=== PATIENT | male | born 1945 | race Caucasian/White ===

== ENCOUNTER 2022-04-10 09:09 | Emergency (ER) | payer MEDICARE, SELFPAY ==
--- NOTE | ~2022-04-10 | XR_ITS ---
EXAMINATION: XR CHEST CLINICAL INFORMATION: Cough COMPARISON: Previous chest x-ray May 2012 TECHNIQUE: 2 views of the chest were obtained. FINDINGS: The cardiac and mediastinal contours are stable. The lungs are clear. There is no pleural effusion or pneumothorax. There are degenerative changes of the spine. XR/XR chest 2V IMPRESSION: No evidence for acute disease in the chest.
[2022-04-10 09:21] VITALS: BP 152/92; PULSE 112; RESP 24; TEMP 37.1; O2SAT 94; BMI 36.6
[2022-04-10 09:34] VITALS: BP 126/78; PULSE 100; RESP 17; TEMP 37.1; O2SAT 94
--- NOTE | 2022-04-10 09:46 | ED_ITS ---
HPI - URI/Sore Throat General Chief Complaint: Upper Respiratory Symptoms Stated Complaint: Cough/Congestion Time Seen by Provider: 04/10/22 09:39 Source: patient Mode of arrival: ambulatory Limitations: no limitations History of Present Illness HPI Narrative: 77 yo male with history of HTN and gout who presents to the ER c/o 6 days of feeling unwell and feeling like he has the flu. He states he has had a cough productive of white phlegm, chest congestion, body aches and headache. Symptoms started 6 days ago and have been waxing and waning. Last night he started having ?fuzzy vision in both of his eyes with increased eye drainage bilaterally. This morning he woke up with both of his eyes crusted shut with drainage. He noticed both of his eyes are bloodshot and red. He denies foreign body sensation, trauma. He is fully vaccinated for COVID and flu. He has no known sick contacts. He denies any shortness of breath, chest pain, abdominal pain. MD elicited complaint: cough and nasal congestion Onset (ago): day(s) (6) Consistency: constant Severity: moderate Description of mucous: clear Able to tolerate fluids by mouth: Yes Exacerbating factors: nothing Relieving factors: nothing Associated symptoms: myalgias, headache, nasal congestion and cough Treatments prior to arrival: none Related Data Previous Rx's Medication Instructions Recorded sulfacetamide sodium 10 % eye drops 1 drp ophthalmic (eye) Q4H #5 mL 04/10/22 Allergies Allergy/AdvReac Type Severity Reaction Status Date / Time Shellfish Allergy Severe ITCHING Uncoded 02/15/20 16:27 HANDS SHELLFISH Allergy Unknown Uncoded 09/12/15 00:00 shellfish Allergy Unknown swelling Uncoded 10/26/13 00:00 Review of Systems Review of Systems: Constitutional: No Fever, No Chills ENT/Mouth: No sore throat, No Rhinorrhea, No Swallowing Difficulty Eyes: No Eye Pain, No Swelling, + Redness, +discharge Cardiovascular: No Chest Pain, No SOB, No Orthopnea, No Edema Respiratory: + Cough, + Sputum, No Wheezing, No dyspnea Gastrointestinal: No Nausea, No Vomiting, No Diarrhea, No abdominal Pain, No Hematochezia, No Melena Genitourinary: No Dysuria, No Urinary Frequency, No Hematuria Musculoskeletal: No joint pain, + Myalgias Skin: No Skin Lesions, No rash Neuro: + Weakness, No Numbness, No Dizziness, + Headache Heme/Lymph: No Bruising, No Lymphadenopathy PMFSH Social History Social History Alcohol intake: former Smoked in Last 30 Days: No Advance Directives: Yes Advance Directives Information Provided: Yes Advance Directives on File: No Physical Exam Vital Signs: Vital Signs: Last Vital Signs Temp 98.8 F 04/10/22 09:34 Pulse 100 04/10/22 09:34 Resp 17 04/10/22 09:34 BP 126/78 04/10/22 09:34 Pulse Ox 94 04/10/22 09:34 O2 Del Method 04/10/22 09:34 BMI result Body Mass Index 36.6 Appearance: Alert. Oriented X3. No acute distress. Eyes: Pupils equal, round and reactive to light. Bilateral scleral injection with yellow drainage bilaterally. EOMI. ENT: Pharynx normal. Neck: Normal inspection. Neck supple. CVS: Normal heart rate and rhythm. Pulses normal. Respiratory: No respiratory distress. Breath sounds normal. Abdomen: Soft and nontender. +BS x4 Skin: Skin warm and dry. Normal skin color. Normal skin turgor. No rashes. Extremities: No lower extremity edema. Neuro: Oriented X 3. No motor deficit. No sensory deficit. Steady gait, nonfocal Course Course Course Narrative: 77 yo male with history of HTN and gout who presents to the ER for evaluation of 6 days of flu-like symptoms. Presenting trigger today was eye drainage and blurry vision due to the drainage. On examination he has evidence of bacterial conjunctivitis with bilateral injection and visible yellow drainage bilaterally. His vital signs are normal and his lungs are clear. Will check chest x-ray to rule out pneumonia. Will check COVID and flu swabs. Otherwise he appears well. Reevaluation(s) Reevaluation #1: Chest x-ray is clear. Patient found to be COVID positive. His symptoms started 6 days ago therefore he is not a candidate for monoclonal antibodies. He is vaccinated. He remains hemodynamically stable and saturating 96% on room air. Respiratory symptoms have been improving over the week. Will prescribe antibi otic drops for his conjunctivitis. Supportive can return precautions were discussed. He is stable for discharge home. MDM - URI/Sore Throat Lab Data Labs: Lab Results 04/10/22 04/10/22 Range/Units 10:44 10:44 COVID-19 (ARTURO) Positive A (Negative) COVID-19 Clin Com See Note Influenza Type A (BRIAN) Negative (Negative) Influenza Type B (BRIAN) Negative (Negative) Influenza A & B Note See Note Critical Care Time Critical Care Time Critical Care Time: No Discharge Plan Discharge Clinical Impression: COVID-19, Conjunctivitis Patient Disposition: Home, Self-Care Instructions: Covid-19 Viral Syndrome and Novel Coronavirus (ED) Hey/Ath, Conjunctivitis (ED) Additional Instructions: You were found to be COVID-19 POSITIVE today. Your chest x-ray and oxygen levels were normal. Rest. Drink plenty of fluids. Do not go out in public while you are feeling unwell. Take over the counter cold/flu medications as needed for your symptoms. Take Tylenol and/or Motrin as needed for fevers and body aches. Use the prescribed eye drops as prescribed. Use warm compresses on your eyes 3-4 times per day. Follow up with your doctor this week. Prescriptions: New sulfacetamide sodium 10 % drops 1 drp ophthalmic (eye) Q4H Qty: 5 0RF Interventions: ED Discharge Assessment Last Done: 04/10/22 11:33 Discharge Date/Time: 04/10/22 11:34
[2022-04-10 11:05] LABS: COVID-19 Test Positive (Negative); IDNOW Serial# 16C4AD1C
[2022-04-10 11:07] LABS: Influenza A Negative (Negative); Influenza B2 Negative (Negative)
--- NOTE | 2022-04-10 11:31 | PC.NURSE ---
patient a/ox4 . went over discharge instructions as ordered by provider . patient is positive for COVID educated to isolate . patient to follow up with primary care . patient to return to ed if symptoms worsen . patient has no questions at this time .
== END 2022-04-10 11:34 | disposition home or self-care (01) ==
PROVIDERS: Physician Assistant; Emergency Provider Emergency Medicine; PCP Family Medicine
DX: H10.33 Unspecified acute conjunctivitis, bilateral (principal); R05.9 Cough, unspecified; U07.1 COVID-19; R51.9 Headache, unspecified; M79.10 Myalgia, unspecified site; Z79.899 Other long term (current) drug therapy
CPT/HCPCS: 71046; 87502; 87635; 99283; 99284